=== PATIENT | male | born 1945 | race Caucasian/White ===

== ENCOUNTER 2023-04-23 16:40 | Observation (INO) | payer BC, MEDICARE ==
[2023-04-23 17:42] LABS: African American GFR (CKD) 62 (>60 ml/min/1.73 sqM); Anion Gap 5 mmol/L; Blood Urea Nitrogen 35 mg/dL (9-20); Calcium 8.4 mg/dL (8.4-10.2); Carbon Dioxide 25 mmol/L (22-30); Chloride 106 mmol/L (98-107); Glucose 131 mg/dL (74-99); Non-African American GFR(CKD) 54 (>60 ml/min/1.73 sqM); Sodium 136 mmol/L (137-145)
[2023-04-23 17:43] LABS: Basophils % (A) 0 %; Eosinophils # (A) 0.3 k/uL (0-0.7); Eosinophils % (A) 5 %; HCT 32.6 % (39.0-53.0); HGB 10.8 gm/dL (13.0-17.5); Lymphocytes % (A) 27 %; MCH 30.6 pg (25.0-35.0); MCHC 33.2 g/dL (31.0-37.0); MCV 92.1 fL (80.0-100.0); Mean Platelet Volume 7.7; Monocytes # (A) 0.6 k/uL (0-1.0); Monocytes % (A) 8 %; Neutrophils # (A) 4.2 k/uL (1.3-7.7); Neutrophils % (A) 58 %; Platelet Count 171 k/uL (150-450); RBC 3.54 m/uL (4.30-5.90); RDW 15.2 % (11.5-15.5); WBC 7.2 k/uL (3.8-10.6)
[2023-04-23] MEDS ORDERED: SODIUM CHLORIDE 0.9% 1,000 ML IV STA (17:54)
[2023-04-23] MEDS ORDERED: SODIUM CHLORIDE 0.9% 500 ML 500 ML IV STA (17:54)
[2023-04-23] MEDS ORDERED: MECLIZINE 12.5 MG TAB PO STA (17:57)
[2023-04-23] MEDS ORDERED: MECLIZINE 25 MG TAB PO PRN (17:57)
[2023-04-23] MEDS ORDERED: ACETAMINOPHEN TAB 325 MG TAB PO PRN (18:01)
[2023-04-23] MEDS ORDERED: NALOXONE 0.4 MG/ML 1 ML VIAL IV PRN (18:01)
[2023-04-23 18:08] LABS: Appearance,Urine Clear (Clear); Bilirubin,Urine Negative (Negative); Blood,Urine Negative (Negative); Glucose,Urine (UA) Negative (Negative); Hyaline Casts,Urine 1 /lpf (0-2); Ketones,Urine Negative (Negative); Leukocyte Esterase,Urine Large (Negative); Mucus,Urine Rare /hpf; Nitrite,Urine Negative (Negative); Protein,Urine Negative (Negative); RBC,Urine 1 /hpf (0-5); Specific Gravity,Urine 1.014 (1.001-1.035); Squamous Epithelial Cell,Urine <1 /hpf (0-4); Urobilinogen,Urine <2.0 mg/dL (<2.0); WBC,Urine 15 /hpf (0-5)
--- NOTE | 2023-04-23 18:08 | ED ---
General Adult HPI - General Chief complaint: Dizziness Stated complaint: Dizziness Time Seen by Provider: 04/23/23 17:04 Source: patient, EMS, RN notes reviewed, old records reviewed Mode of arrival: EMS Limitations: no limitations - History of Present Illness Initial comments: Patient is a 77 year old male with past medical history remarkable for vertigo, diabetes, hypertension, CAD with 3 cardiac stents who presents emergency Department complaining of persistent dizziness and a UTI. Patient is a transfer from [facility]. I spoke with Dr. Casas over the phone who gave me the patient's past medical history. Since Sunday patient has been having what they described as vertiginous type symptoms and was diagnosed with the UTI was being watched in the emergency department without much improvement. Therefore acute transfer for neuro evaluation. I spoke the patient regarding this and he did corroborate the story. However describes his dizziness as more of a lightheaded sensation now. Comes and goes. States meclizine somewhat helps currently asymptomatic upon presentation. Denies any other complaints at this time. He is found to have a flat troponin at the outside facility as well but we will repeat it here. He'll be admitted for neurology evaluation he was in agreement with this plan. Workup at the outside facility included CT brain and chest x-ray both of which were unremarkable for any acute process. - Related Data Home Medications Medication Instructions Recorded Confirmed Carvedilol [Coreg] 3.125 mg PO BID 03/27/16 04/23/23 Clopidogrel [Plavix] 75 mg PO DAILY 03/27/16 04/23/23 Furosemide [Lasix] 20 mg PO DAILY 03/27/16 04/23/23 Atorvastatin [Lipitor] 20 mg PO HS 04/23/23 04/23/23 DULoxetine HCL [Cymbalta] 60 mg PO BID 04/23/23 04/23/23 Finasteride [Proscar] 5 mg PO HS 04/23/23 04/23/23 Gabapentin 300 mg PO HS 04/23/23 04/23/23 Isosorbide Mononitrate ER [Imdur] 60 mg PO DAILY 04/23/23 04/23/23 Loratadine [Claritin] 10 mg PO DAILY 04/23/23 04/23/23 Melatonin 10 mg PO HS 04/23/23 04/23/23 Omeprazole [PriLOSEC] 20 mg PO DAILY 04/23/23 04/23/23 Tamsulosin HCl [Flomax] 0.4 mg PO DAILY 04/23/23 04/23/23 Vit C/E/Zn/Coppr/Lutein/Zeaxan 1 cap PO BID 04/23/23 04/23/23 [Preservision Areds 2 Softgel] traZODone HCL [Desyrel] 50 mg PO HS 04/23/23 04/23/23 Allergies Allergy/AdvReac Type Severity Reaction Status Date / Time cortisone Allergy Rash/Hives Verified 04/23/23 18:00 house dust mite Allergy Itching Verified 04/23/23 18:00 Review of Systems ROS Statement: Those systems with pertinent positive or pertinent negative responses have been documented in the HPI. Review of Systems: CONST: Denies fever EYES: Denies blurry vision ENT: Denies nasal congestion C/V: Denies Chest pain RESP: Denies shortness of breath GI: Denies abdominal pain : Denies dysuria SKIN: Denies rash. MSK: Denies joint pain. NEURO: Denies headache ROS Other: All systems not noted in ROS Statement are negative. Past Medical History Past Medical History: Diabetes Mellitus, Hypertension Additional Past Medical History / Comment(s): CAD, UTI History of Any Multi-Drug Resistant Organisms: None Reported Past Surgical History: Heart Catheterization With Stent Additional Past Surgical History / Comment(s): 3 stents Date of Last Stent Placement:: 08/2011 Past Psychological History: Depression Smoking Status: Former smoker Past Alcohol Use History: Occasional Past Drug Use History: None Reported - Past Family History Mother Family Medical History: Cancer Additional Family Medical History / Comment(s): Breast CA Father Family Medical History: Myocardial Infarction ([place]) General Exam - General Exam Comments Initial Comments: General: Appears in no acute distress. HEAD: Normal with no signs of head trauma. EYES: PERRLA, EOMI, conjunctiva normal, no discharge. Pupils are 3 mm equal bilaterally. ENT: Hearing grossly intact, normal oropharynx. RESPIRATORY: Clear breath sounds bilaterally. No wheezes, rales, or rhonchi. C/V: Regular rate and rhythm. S1 and S2 auscultated, no edema, peripheral pulses 2+ and intact throughout ABD: Abd is soft, nontender, nondistended EXT: Normal range of motion, no obvious deformity SKIN: No rashes or lesions observed on exposed skin. NEURO: Alert and oriented x 4. Cranial nerves II-XII intact. No focal sensory or strength deficits. GCS of 15. NIH of 0. Normal finger to nose testing. Normal [id number] testing. No dysdiadochokinesia. Limitations: no limitations Course Vital Signs 04/23/23 04/23/23 16:49 17:48 Temperature 98.3 F Pulse Rate 52 L Pulse Rate [ 66 Sitting] Pulse Rate [ 80 Standing] Pulse Rate [ 56 L Supine Missile Control Pilot] Respiratory 18 Rate Blood Pressure 102/50 Blood Pressure 86/52 [Right Arm Sitting] Blood Pressure 99/60 [Right Arm Standing] Blood Pressure 95/59 [Right Arm Supine] O2 Sat by Pulse 97 Oximetry Medical Decision Making - Medical Decision Making Was pt. sent in by a medical professional or institution (, PA, CHEMICAL CHECKER, urgent care, hospital, or [place] health [place] facility...) When possible be specific @ -No Did you speak to anyone other than the patient for history (EMS, parent, family, police, friend...)? What history was obtained from this source @ -Spoke with Dr. Casas of [facility] who provided me with information regarding the patient's stay at their facility. Did you review nursing and triage notes (agree or disagree)? Why? @ -I reviewed and agree with nursing and triage notes Were old charts reviewed (outside hosp., previous admission, EMS record, old EKG, old radiological studies, urgent care reports/EKG's, [place] [facility] [place] facility records)? Report findings @ -Reviewed charts from [facility] including EKG Differential Diagnosis (chest pain, altered mental status, abdominal pain women, abdominal pain men, vaginal bleeding, weakness, fever, dyspnea, syncope, headache, dizziness, GI bleed, back pain, seizure, CVA, palpatations, mental health, musculoskeletal)? @ -Differential Dizziness: Benign paroxysmal positional Vertigo, Menieres disease, otitis media, acoustic neuroma, vertebrobasilar insufficiency, cerebellar stroke, encephalitis, hypovolemic, arrhythmia, coronary artery syndrome, anemia, this is not meant to be an all-inclusive list EKG interpreted by me (3pts min.). @ -As above X-rays interpreted by me (1pt min.). @ -None done CT interpreted by me (1pt min.). @ -None done U/S interpreted by me (1pt. min.). @ -None done What testing was considered but not performed or refused? (CT, X-rays, U/S, labs)? Why? @ -None What meds were considered but not given or refused? Why? @ -None Did you discuss the management of the patient with other professionals (professionals i.e. DrYeimy, PA, CHEMICAL CHECKER, lab, RT, psych nurse, social media specialist, quality internship, teacher, senior major gifts officer, continuous pillowcase cutter)? Give summary @ -Discussed with the transferring physician, Dr. Casas. I was in agreement with her plan. I also discussed with the admitting physician, Dr. Hdez who accepted the patient. Was smoking cessation discussed for >3mins.? @ -No Was critical care preformed (if so, how long)? @ -No Were there social determinants of health that impacted care today? How? (Homelessness, low income, unemployed, alcoholism, drug addiction, transportation, low edu. Level, literacy, decrease access to med. care, penitentiary, rehab)? @ -No Was there de-escalation of care discussed even if they declined (Discuss DNR or withdrawal of care, Hospice)? DNR status @ -No What co-morbidities impacted this encounter? (DM, HTN, Smoking, COPD, CAD, Cancer, CVA, ARF, Chemo, Hep., AIDS, mental health diagnosis, sleep apnea, morbid obesity)? @ -None Was patient admitted / discharged? Hospital course, mention meds given and route, prescriptions, significant lab abnormalities, going to OR and other pertinent info. @ -Based on the patient's presentation and physical exam, presents with persistent dizziness/vertiginous symptoms since Sunday that appeared to have since been resolved. He was diagnosed with a UTI at outside hospital. Blood work was reviewed from outside hospital we will repeat labs here. He was in agreement with this plan. Orthostatic vital signs negative here. He will be given a fluid bolus, started on maintenance fluids, we will resume his Rocephin for his UTI, and we will provide him with a dose of meclizine. Patient was in agreement with this plan. Vital signs are otherwise within acceptable limits. EKG shows no signs of acute ischemia. Patient's labs repeated here are relatively unremarkable including a troponin that is indeterminate at 0.012. Urinalysis continues to show WBCs, as well as a large amount of leukocyte esterase. At the outside facility, they also saw large amount of bacteria. Viral swabs are negative. At this time patient will be admitted. Outside imaging was uploaded and reviewed and revealed no obvious acute intracranial process and no obvious acute cardiopulmonary process. His patient was transferred here for neurology evaluation despite him being asymptomatic at this time, we will obtain a neuro consult. He will be admitted to [facility], Dr. Hdez, who accepted the patient. Undiagnosed new problem with uncertain prognosis? @ -No Drug Therapy requiring intensive monitoring for toxicity (Heparin, Nitro, Insulin, Cardizem)? @ -No Were any procedures done? @ -No Diagnosis/symptom? @ -Dizziness, UTI Acute, or Chronic, or Acute on Chronic? @ -Acute Uncomplicated (without systemic symptoms) or Complicated (systemic symptoms)? @ -Complicated Side effects of treatment? @ -No Exacerbation, Progression, or Severe Exacerbation? @ -No Poses a threat to life or bodily function? How? (Chest pain, [place], AR, pneumonia, PE, COPD, DKA, ARF, appy, cholecystitis, CVA, Diverticulitis, Homicidal, Marci cidal, threat to staff... and all critical care pts) @ -Yes - Lab Data Result diagrams: 04/23/23 17:20 04/23/23 17:20 Lab Results 04/23/23 04/23/23 04/23/23 Range/Units 17:20 17:20 17:20 WBC 7.2 (3.8-10.6) k/uL RBC 3.54 L (4.30-5.90) m/uL Hgb 10.8 L (13.0-17.5) gm/dL Hct 32.6 L (39.0-53.0) % MCV 92.1 (80.0-100.0) fL MCH 30.6 (25.0-35.0) pg MCHC 33.2 (31.0-37.0) g/dL RDW 15.2 (11.5-15.5) % Plt Count 171 (150-450) k/uL MPV 7.7 Neutrophils % 58 % Lymphocytes % 27 % Monocytes % 8 % Eosinophils % 5 % Basophils % 0 % Neutrophils # 4.2 (1.3-7.7) k/uL Lymphocytes # 2.0 (1.0-4.8) k/uL Monocytes # 0.6 (0-1.0) k/uL Eosinophils # 0.3 (0-0.7) k/uL Basophils # 0.0 (0-0.2) k/uL Sodium 136 L (137-145) mmol/L Potassium 4.0 (3.5-5.1) mmol/L Chloride 106 (98-107) mmol/L Carbon Dioxide 25 (22-30) mmol/L Anion Gap 5 mmol/L BUN 35 H (9-20) mg/dL Creatinine 1.29 H (0.66-1.25) mg/dL Est GFR (CKD-EPI)AfAm 62 (>60 ml/min/1.73 sqM) Est GFR (CKD-EPI)NonAf 54 (>60 ml/min/1.73 sqM) Glucose 131 H (74-99) mg/dL Plasma Lactic Acid Bebeto 1.3 (0.7-2.0) mmol/L Calcium 8.4 (8.4-10.2) mg/dL Troponin I (0.000-0.034) ng/mL Urine Color Urine Appearance (Clear) Urine pH (5.0-8.0) Ur Specific [place] (1.001-1.035) Urine Protein (Negative) Urine Glucose (UA) (Negative) Urine Ketones (Negative) Urine Blood (Negative) Urine Nitrite (Negative) Urine Bilirubin (Negative) Urine Urobilinogen (<2.0) mg/dL Ur Leukocyte Esterase (Negative) Urine RBC (0-5) /hpf Urine WBC (0-5) /hpf Ur Squamous Epith Cells (0-4) /hpf Hyaline Casts (0-2) /lpf Urine Mucus (None) /hpf Influenza Type A (PCR) (Not Detectd) Influenza Type B (PCR) (Not Detectd) RSV (PCR) (Not Detectd) SARS-CoV-2 (PCR) (Not Detectd) 04/23/23 04/23/23 04/23/23 Range/Units 17:20 17:20 17:48 WBC (3.8-10.6) k/uL RBC (4.30-5.90) m/uL Hgb (13.0-17.5) gm/dL Hct (39.0-53.0) % MCV (80.0-100.0) fL MCH (25.0-35.0) pg MCHC (31.0-37.0) g/dL RDW (11.5-15.5) % Plt Count (150-450) k/uL MPV Neutrophils % % Lymphocytes % % Monocytes % % Eosinophils % % Basophils % % Neutrophils # (1.3-7.7) k/uL Lymphocytes # (1.0-4.8) k/uL Monocytes # (0-1.0) k/uL Eosinophils # (0-0.7) k/uL Basophils # (0-0.2) k/uL Sodium (137-145) mmol/L Potassium (3.5-5.1) mmol/L Chloride (98-107) mmol/L Carbon Dioxide (22-30) mmol/L Anion Gap mmol/L BUN (9-20) mg/dL Creatinine (0.66-1.25) mg/dL Est GFR (CKD-EPI)AfAm (>60 ml/min/1.73 sqM) Est GFR (CKD-EPI)NonAf (>60 ml/min/1.73 sqM) Glucose (74-99) mg/dL Plasma Lactic Acid [place] (0.7-2.0) mmol/L Calcium (8.4-10.2) mg/dL Troponin I 0.012 (0.000-0.034) ng/mL Urine Color Yellow Urine Appearance Clear (Clear) Urine pH 5.0 (5.0-8.0) Ur Specific [place] 1.014 (1.001-1.035) Urine Protein Negative (Negative) Urine Glucose (UA) Negative (Negative) Urine Ketones Negative (Negative) Urine Blood Negative (Negative) Urine Nitrite Negative (Negative) Urine Bilirubin Negative (Negative) Urine Urobilinogen <2.0 (<2.0) mg/dL Ur Leukocyte Esterase Large H (Negative) Urine RBC 1 (0-5) /hpf Urine WBC 15 H (0-5) /hpf Ur Squamous Epith Cells <1 (0-4) /hpf Hyaline Casts 1 (0-2) /lpf Urine Mucus Rare H (None) /hpf Influenza Type A (PCR) Not Detected (Not Detectd) Influenza Type B (PCR) Not Detected (Not Detectd) RSV (PCR) Not Detected (Not Detectd) SARS-CoV-2 (PCR) Not Detected (Not Detectd) - EKG Data -: EKG Interpreted by Me EKG Comments: \12-lead Electrocardiogram Interpretation Note EKG was reviewed and interpreted by myself. 12-lead ECG performed at 1735 is interpreted by me as revealing sinus bradycardia with first-degree AV block at a rate of 55 beats per minute. [place] is normal. OR interval is 225 ms, QRS duration is 81 ms, QTc is 418 ms.. There were no ST or T wave abnormalities to suggest myocardial ischemia or injury. R wave progression across the precordium was satisfactory. By my interpretation this EKG is non-diagnostic for acute ischemia. When compared with EKG from outside facility performed last night, no significant change. Disposition Clinical Impression: Dizzy, UTI (urinary tract infection) Disposition: ADMITTED IP TO THIS HOSP Condition: Stable [facility]: [facility] [Primary Care Provider] - 1-2 days Time of Disposition: 18:05
[2023-04-23 18:09] LABS: Color,Urine Yellow
--- NOTE | 2023-04-23 23:51 | P.HPIM ---
History of Present Illness H&P Date: 04/23/23 The patient is a 77-year-old male with a PMH of type II DM, chronic kidney disease, CAD status post stents, hypertension, and hyperlipidemia who was transferred from [facility] where the patient had presented on 04/22 with complaints of dizziness with nausea and vomiting. The patient reports that he woke up on Sunday morning with the above symptoms. He reports long- standing history of intermittent dizziness with nausea that would normally resolv within 24 hours. This episode was persistent and thereby on Sunday he decided to go to the emergency room. He reports vertiginous symptoms with bilateral ear fullness and some tinnitus. The symptoms are worse with movement although he continues to have mild symptoms at rest and are not necessarily positional but more so with standing up. Reports that his symptoms have improved significantly since arrival at [facility] but he continues to have mild vertiginous dizziness. He denied experiencing focal weakness, numbness, tingling, or visual disturbances. The patient underwent an extensive evaluation at [facility] which was all reviewed. EKG had revealed sinus rhythm at 60 bpm with a right bundle-branch block as reviewed by me. Laboratory evaluation revealed a UA consistent with UTI. The patient was sta rted on ceftriaxone and also given meclizine for suspected peripheral vertigo. CT brain was unremarkable. A CT chest/abdomen/pelvis without contrast was also unremarkable. Laboratory evaluation had revealed a troponin of 0.030, followed by 0.037 and subsequently 0.045 with BUN 32, creatinine 1.1, lactate 2.0, magnesium 2.1, The patient's symptoms however failed to improve despite treatment with fluids and meclizine and he was transferred to [facility] for evaluation by neurology for possible posterior circulation CVA. Vital signs in the emergency room upon arrival were BP 102/50 with pulse 52. Orthostatics were checked and were negative with BP sitting 86/52 with pulse 56. Laboratory evaluation at our facility revealed a troponin of 0.012 with BUN 35 and creatinine 1.29. EKG had revealed sinus bradycardia at 55 bpm with a right bundle-branch block as reviewed by me. ED documentation reviewed and case discussed with ED provider. Review of systems: Pertinent positives and negatives as discussed in HPI, a complete review of systems was performed and all other systems are negative. Physical examination: Vital signs reviewed General: non toxic, no distress, appears at stated age, normal weight Derm: no unusual rashes/lesions, warm Head: atraumatic, normocephalic, symmetric Eyes: EOMI, no lid lag, anicteric sclera, pupils equal round reactive to light ENT: Nose and ears atraumatic Neck: No cervical lymphadenopathy, trachea midline, supple Mouth: no lip lesion, mucus membranes moist Cardiovascular: S1S2 reg, no murmur, positive dorsalis pedis pulse bilateral, no edema Lungs: CTA bilateral, no rhonchi, no rales, no accessory muscle use Abdominal: soft, nontender to palpation, no guarding Ext: muscle strength 3 out of 5 right lower extremity (chronic after a fall several years ago as per patient), strength 5 out of 5 in all other extremities, no gross muscle atrophy, no contractures Neuro: CN II-XI grossly intact, no gross focal neuro deficits Psych: Alert, oriented, appropriate affect Assessment: Vertigo with ear fullness and tinnitus, suspect peripheral Hypotension UTI Chronic conditions: Type 2 DM, CKD, CAD, HTN, HLD Imaging: As per HPI Data Review: As per HPI Plan: C/w Meclizine Neurology consult Fall precautions Obtain CTA head and neck C/w IV fluids with normal saline 100 and also per hour Continue ceftriaxone and follow up urine cultures DVT prophylaxis: Lovenox subq The patient is admitted with an anticipated greater than 2 midnight stay for evaluation of dizziness CODE STATUS: Full Code Discussed with: Patient Anticipated discharge place: Home Past Medical History Past Medical History: Diabetes Mellitus, Hypertension Additional Past Medical History / Comment(s): CAD, UTI History of Any Multi-Drug Resistant Organisms: None Reported Past Surgical History: Heart Catheterization With Stent Additional Past Surgical History / Comment(s): 3 stents Date of Last Stent Placement:: 08/2011 Past Psychological History: Depression Smoking Status: Former smoker Past Alcohol Use History: Occasional Past Drug Use History: None Reported - Past Family History Mother Family Medical History: Cancer Additional Family Medical History / Comment(s): Breast CA Father Family Medical History: Myocardial Infarction ([place]) Medications and Allergies Home Medications Medication Instructions Recorded Confirmed Type Carvedilol [Coreg] 3.125 mg PO BID 03/27/16 04/23/23 History Clopidogrel [Plavix] 75 mg PO DAILY 03/27/16 04/23/23 History Furosemide [Lasix] 20 mg PO DAILY 03/27/16 04/23/23 History Atorvastatin [Lipitor] 20 mg PO HS 04/23/23 04/23/23 History DULoxetine HCL [Cymbalta] 60 mg PO BID 04/23/23 04/23/23 History Finasteride [Proscar] 5 mg PO HS 04/23/23 04/23/23 History Gabapentin 300 mg PO HS 04/23/23 04/23/23 History Isosorbide Mononitrate ER [Imdur] 60 mg PO DAILY 04/23/23 04/23/23 History Loratadine [Claritin] 10 mg PO DAILY 04/23/23 04/23/23 History Melatonin 10 mg PO HS 04/23/23 04/23/23 History Omeprazole [PriLOSEC] 20 mg PO DAILY 04/23/23 04/23/23 History Tamsulosin HCl [Flomax] 0.4 mg PO DAILY 04/23/23 04/23/23 History Vit C/E/Zn/Coppr/Lutein/Zeaxan 1 cap PO BID 04/23/23 04/23/23 History [Preservision Areds 2 Softgel] traZODone HCL [Desyrel] 50 mg PO HS 04/23/23 04/23/23 History Allergies Allergy/AdvReac Type Severity Reaction Status Date / Time cortisone Allergy Rash/Hives Verified 04/23/23 18:00 house dust mite Allergy Itching Verified 04/23/23 18:00 Physical Exam Vitals: Vital Signs Temp Pulse Pulse Pulse Pulse Resp BP 04/23/23 17:48 66 80 56 L 04/23/23 16:49 98.3 F 52 L 18 102/50 BP BP BP Pulse Ox 04/23/23 17:48 86/52 99/60 95/59 04/23/23 16:49 97 Intake and Output 04/23/23 04/23/23 04/23/23 06:59 14:59 22:59 Other: Weight 73.482 kg Results CBC & Chem 7: 04/23/23 17:20 04/23/23 17:20 Labs: Abnormal Lab Results - Last 24 Hours (Table) 04/23/23 04/23/23 04/23/23 Range/Units 17:20 17:20 17:48 RBC 3.54 L (4.30-5.90) m/uL Hgb 10.8 L (13.0-17.5) gm/dL Hct 32.6 L (39.0-53.0) % Sodium 136 L (137-145) mmol/L BUN 35 H (9-20) mg/dL Creatinine 1.29 H (0.66-1.25) mg/dL Glucose 131 H (74-99) mg/dL Ur Leukocyte Esterase Large H (Negative) Urine WBC 15 H (0-5) /hpf Urine Mucus Rare H (None) /hpf
--- NOTE | 2023-04-24 02:00 | CT ---
EXAM: CT Angiography Head With Intravenous Contrast CLINICAL HISTORY: ITS.REASON CT Reason: dizziness TECHNIQUE: Axial computed tomographic angiography images of the head with intravenous contrast. CTDI is 19.5 mGy and DLP is 247.2 mGy-cm. This CT exam was performed using one or more of the following dose reduction techniques: automated exposure control, adjustment of the mA and/or kV according to patient size, and/or use of iterative reconstruction technique. MIP reconstructed images were created and reviewed. COMPARISON: No relevant prior studies available. FINDINGS: Right internal carotid artery: Intracranial segment is patent with no significant stenosis. No aneurysm. Right anterior cerebral artery: No occlusion or significant stenosis. No aneurysm. Right middle cerebral artery: Mild right proximal M2 branch stenosis. No aneurysm. Right posterior cerebral artery: No occlusion or significant stenosis. No aneurysm. Left internal carotid artery: Intracranial segment is patent with no significant stenosis. No aneurysm. Left anterior cerebral artery: No occlusion or significant stenosis. No aneurysm. Left middle cerebral artery: No occlusion or significant stenosis. No aneurysm. Left posterior cerebral artery: No occlusion or significant stenosis. No aneurysm. Basilar artery: No occlusion or significant stenosis. No aneurysm. IMPRESSION: Mild right proximal M2 branch stenosis. EXAM: CT Angiography Neck With Intravenous Contrast CLINICAL HISTORY: ITS.REASON CT Reason: dizziness TECHNIQUE: Axial computed tomographic angiography images of the neck with intravenous contrast. CTDI is 19.5 mGy and DLP is 247.2 mGy-cm. This CT exam was performed using one or more of the following dose reduction techniques: automated exposure control, adjustment of the mA and/or kV according to patient size, and/or use of iterative reconstruction technique. MIP reconstructed images were created and reviewed. COMPARISON: No relevant prior studies available. FINDINGS: VASCULATURE: Right common carotid artery: No significant stenosis. No dissection. Right internal carotid artery: Extracranial has no significant stenosis. No dissection. Right vertebral artery: No significant stenosis. No dissection. Left common carotid artery: No significant stenosis. No dissection. Left internal carotid artery: Extracranial has no significant stenosis. No dissection. Left vertebral artery: Mild left intervertebral vertebral artery stenosis from atherosclerosis. No dissection. NECK: Bones/joints: No acute fracture. No dislocation. CAROTID STENOSIS REFERENCE USING NASCET CRITERIA: % ICA stenosis = (1 - narrowest ICA diameter/diameter of distal cervical ICA) x 100. Mild - <50% stenosis. Moderate - 50-69% stenosis. Severe - 70-94% stenosis. Near occlusion - 95-99% stenosis. Occluded - 100% stenosis. IMPRESSION: Mild left intervertebral vertebral artery stenosis from atherosclerosis.
[2023-04-24] MEDS: ENOXAPARIN 40 MG/0.4 ML SYRINGE SQ SCH (09:21)
[2023-04-24 12:02] LABS: Basophils # (A) 0.04 X 10*3/uL (0.00-0.10); Basophils % (A) 0.6 %; Eosinophils # (A) 0.34 X 10*3/uL (0.04-0.35); Eosinophils % (A) 5.2 %; HGB 10.2 d/dL (13.0-17.0); Lymphocytes # (A) 2.42 X 10*3/uL (0.90-5.00); Lymphocytes % (A) 37.1 %; MCH 30.1 pg (27.0-32.0); MCHC 31.9 d/dL (32.0-37.0); MCV 94.4 FL (80.0-97.0); Mean Platelet Volume 9.6 FL (9.5-12.2); Monocytes # (A) 0.55 X 10*3/uL (0.20-1.00); Monocytes % (A) 8.4 %; NRBC Per 100 WBC 0 X 10*3/uL (0.00-0.01); Neutrophils # (A) 3.16 X 10*3/uL (1.80-7.70); Neutrophils % (A) 48.4 %; Platelet Count 160 X 10*3/uL (140-440); RBC 3.39 X 10*6/uL (4.40-5.60); RDW 15.6 % (11.5-14.5); WBC 6.53 X 10*3/uL (4.50-10.00)
[2023-04-24 12:09] LABS: BUN/Creat Ratio 24.27 Ratio (12.00-20.00); Blood Urea Nitrogen 26.7 mg/dL (9.0-27.0); Calcium 8.6 mg/dL (8.7-10.3); Carbon Dioxide 23.8 mmol/L (21.6-31.8); Chloride 110 mmol/L (96-109); Glucose 89 mg/dL (70-110); Potassium 4.1 mmol/L (3.5-5.5); Sodium 142 mmol/L (135-145)
--- NOTE | 2023-04-24 13:56 | P.CNNES ---
History of Present Illness Consult date: 04/24/23 Requesting physician: Yash Rizo Reason for Consult: persistent dizziness, hx of vertigo History of Present Illness: This is a 77-year-old gentleman with history of vertigo, diabetes, coronary artery disease status post stent to presented emergency department because of dizziness and UTI. He was transferred from [facility] visit this dizziness and the neuro evaluation. She states she's been having li ghtheadedness and he feels its with resting and the with movement but denies any focal weakness numbness difficulty swallowing visual disturbance. He has chronic ringing in both ears. Denies any head trauma recently. Denies any new hearing loss. Seems the patient has been having dizziness and there is no improvement while being watched at the outside hospital. He had the CT of the head at the outside hospital which was unremarkable and there is no acute process. Today patient is feeling better after Meclizine dose. He walks with walker at baseline. Some of the workup during our hospital visit consisted of: Patient orthostatic is supine 95/59 the heart rate 56, sitting is 86/52 with a heart rate is 66 and standing was 99/60 with a heart rate of 80. Orthostatics is negative. CT angiography of the head and neck is reported as mild left intervertebral artery stenosis from atherosclerosis. Mild right proximal M2 branch stenosis. Review of Systems Review of system: The 12 point system was reviewed and apparent positive and negative per HPI. Past Medical History Past Medical History: Diabetes Mellitus, Hypertension Additional Past Medical History / Comment(s): CAD, UTI History of Any Multi-Drug Resistant Organisms: None Reported Past Surgical History: Heart Catheterization With Stent Additional Past Surgical History / Comment(s): 3 stents Date of Last Stent Placement:: 08/2011 Past Psychological History: Depression Smoking Status: Former smoker Past Alcohol Use History: Occasional Past Drug Use History: None Reported - Past Family History Mother Family Medical History: Cancer Additional Family Medical History / Comment(s): Breast CA Father Family Medical History: Myocardial Infarction ([place]) Medications and Allergies Home Medications Medication Instructions Recorded Confirmed Type Carvedilol [Coreg] 3.125 mg PO BID 03/27/16 04/23/23 History Clopidogrel [Plavix] 75 mg PO DAILY 03/27/16 04/23/23 History Furosemide [Lasix] 20 mg PO DAILY 03/27/16 04/23/23 History Atorvastatin [Lipitor] 20 mg PO HS 04/23/23 04/23/23 History DULoxetine HCL [Cymbalta] 60 mg PO BID 04/23/23 04/23/23 History Finasteride [Proscar] 5 mg PO HS 04/23/23 04/23/23 History Gabapentin 300 mg PO HS 04/23/23 04/23/23 History Isosorbide Mononitrate ER [Imdur] 60 mg PO DAILY 04/23/23 04/23/23 History Loratadine [Claritin] 10 mg PO DAILY 04/23/23 04/23/23 History Melatonin 10 mg PO HS 04/23/23 04/23/23 History Omeprazole [PriLOSEC] 20 mg PO DAILY 04/23/23 04/23/23 History Tamsulosin HCl [Flomax] 0.4 mg PO DAILY 04/23/23 04/23/23 History Vit C/E/Zn/Coppr/Lutein/Zeaxan 1 cap PO BID 04/23/23 04/23/23 History [Preservision Areds 2 Softgel] traZODone HCL [Desyrel] 50 mg PO HS 04/23/23 04/23/23 History Allergies Allergy/AdvReac Type Severity Reaction Status Date / Time cortisone Allergy Rash/Hives Verified 04/23/23 18:00 house dust mite Allergy Itching Verified 04/23/23 18:00 Physical Examination - Vital Signs Vital Signs: Vital Signs Temp Pulse Pulse Pulse Pulse Resp BP 04/24/23 11:07 97.6 F 56 L 18 114/57 04/24/23 10:00 65 16 135/68 04/24/23 09:00 61 16 136/78 04/24/23 04:10 16 04/24/23 00:23 66 18 112/63 04/23/23 23:42 97.9 F 50 L 17 04/23/23 17:48 66 80 56 L 04/23/23 16:49 98.3 F 52 L 18 102/50 BP BP BP Pulse Ox 04/24/23 11:07 94 L 04/24/23 10:00 98 04/24/23 09:00 98 04/24/23 04:10 04/24/23 00:23 94 L 04/23/23 23:42 130/67 97 04/23/23 17:48 86/52 99/60 95/59 04/23/23 16:49 97 Intake and Output 04/23/23 04/24/23 04/24/23 22:59 06:59 14:59 Other: Weight 73.482 kg 73.482 kg GENERAL: The patient is lying in bed and is not in acute distress. NEUROLOGICAL: Higher mental function: The patient is awake, alert, oriented to self, place and time. Patient is following commands. No aphasia and no neglect. Cranial nerves: The pupils are round, equal and reactive to light and accommodation. Visual johnson are full to confrontation throughout. Extraocular movement is intact no nystagmus is noted. Facial sensation is normal to touch throughout. The facial strength is normal throughout. Hearing is moderately decreased bilaterally to hand rub. Tongue is midline and moved [id number] without any difficulty. No dysarthria is noted. Shoulder shrug is normal bilaterally. Motor: The strength is 5 over 5 throughout. Normal tone and bulk. Cerebellum: Normal finger to nose bilaterally. Sensation: Sensation is normal to touch throughout. Reflexes (right/left): 1+ throughout. Plantars are mute bilaterally. Results - Laboratory Findings CBC and BMP: 04/24/23 06:37 04/24/23 06:37 Abnormal Lab Findings: Abnormal Labs 04/23/23 04/23/23 04/23/23 17:20 17:20 17:48 RBC 3.54 L Hgb 10.8 L Hct 32.6 L MCHC RDW Sodium 136 L Chloride BUN 35 H Creatinine 1.29 H BUN/Creatinine Ratio Glucose 131 H Calcium Ur Leukocyte Esterase Large H Urine WBC 15 H Urine Mucus Rare H 04/24/23 04/24/23 06:37 06:37 RBC 3.39 L Hgb 10.2 L Hct 32.0 L MCHC 31.9 L RDW 15.6 H Sodium Chloride 110 H BUN Creatinine BUN/Creatinine Ratio 24.27 H Glucose Calcium 8.6 L Ur Leukocyte Esterase Urine WBC Urine Mucus Assessment and Plan Assessment: This is a 77-year-old gentleman who was transferred from outside hospital for escalation of care of his dizziness and then needing neurology validation. Patient also has an acute urinary tract infection. Lightheadedness and feeling nauseous Probable peripheral cause especially with acute UTI--improved with meclizine Mild left intervertebral artery stenosis from atherosclerosis andM ild right proximal M2 branch stenosis on CTA but not significant enough in to cause vertigo. Acute urinary tract infection Plan: I ordered MRI of the brain with and without to rule out any peripheral stroke. He is on meclizine 25 g one tablet 3 times a day when necessary. I change it to the scheduled MR the brain is negative for any acute or subacute stroke or any mass continues to have dizziness then the recommend ENT and consideration of vestibular rehab therapy as an outpatient. We'll defer the rest of the medical management to the primary team Thank you for the consultation. Time with Patient: Greater than 30
[2023-04-24] MEDS: MECLIZINE 25 MG TAB PO SCH ×2 (16:02→21:25)
--- NOTE | 2023-04-24 17:56 | P.PN ---
Subjective Progress Note Date: 04/24/23 Hospital course: Patient is a very pleasant 77-year-old male with a past medical history of CAD status post stents on Plavix, hypertension, hyperlipidemia, BPH, vertigo with chronic tinnitus, and depression. He was transferred to our facility on 04/23/23 from [facility] secondary to intractable dizziness, nausea, and vomiting. Patient reports upon awakening Sunday morning the symptoms were present and have been persistent. Patient reports feeling this way in the past with episodes of vertigo but reports never this severe and only lasting a short while prior to resolving after taking meclizine. Patient also reports in the past if he lied down symptoms would resolve and only worsened if he moved. Patient states now it does not matter if he is lying still or moving dizziness and nausea is persistent. He does report increase in these symptoms with standing but states they do not resolve when lying down. He denies experiencing any headache, changes in vision or hearing, chest pain or palpitations, shortness of breath, cough or congestion, abdominal pain,. Or experiencing any numbness/tingling/weakness/swelling in his extremities. On arrival to our facility patient underwent full evaluation. Vital signs completed with blood pressure 102/50, heart rate 52, respiratory rate 18, temp 98.3F, and SpO2 of 97% on room air. Orthostatic vitals were completed and negative for orthostatic hypotension with blood pressure 95/59 lying, 86/52 sitting, and 99/60 standing. EKG was completed showing sinus bradycardia at 55 bpm with a first-degree AV block with WI interval of 225 ms and no significant T-wave or ST abnormalities showing no signs of acute ischemia upon personal review and interpretation. CTA head was completed showing mild right proximal M2 branch stenosis and mild left intervertebral vertebral artery stenosis from atherosclerosis.. CBC showing normocytic anemia with hemoglobin of 10.8. BMP showing slight elevation of renal function with BUN of 35, creatinine 1.29 and GFR 54. Glucose was 131. Lactic acid was 1.3. Troponin was 0.012. Urinalysis was negative for blood or infection. Influenza A, influenza B, RSV, and Covid PCR were all negative. Patient was admitted under the services of consultation to neurology. Physical exam: Patient seen and fully evaluated at bedside this morning. Patient reports persistent dizziness and nausea and denies any further episodes of vomiting. He continues to deny having any changes in vision, difficulties with speech, dysphasia, chest pain, palpitations, or experiencing any numbness /tingling/weakness in his extremities. Patient reports dizziness is improved but not resolved with lying still but does worsen upon standing or with movement. Vital signs reviewed and stable. General: Nontoxic, no distress and appears stated age. Derm: Skin warm and dry, normal coloration for ethnicity. Head: Atraumatic, normocephalic and symmetric. Eyes: EOMs intact, no lid lag, and anicteric sclera Mouth: no lip lesions, mucus membranes moist Cardiovascular: regular rate and rhythm with normal S1S2, no murmur, positive posterior tibial pulses bilaterally, and cap refill < 2 seconds. Lungs: Respirations even, regular, and unlabored on room air. Lungs CTA bilaterally, no rhonchi, no rales, no wheezing, and no accessory muscle usage. Abdominal: soft, nontender to palpation, no guarding, no appreciable organomegaly Ext: ROM intact. No gross muscle atrophy, no edema, no contractures Neuro: Speech clear, face symmetrical and CN II-XII grossly intact with no noted focal neuro deficits Psych: Alert and oriented to person, place, time, and situation. Appropriate and pleasant affect. Assessment and Plan of Care: Intractable dizziness with nausea and vomiting Vertigo with chronic tinnitus Prerenal azotemia History of CAD status post stenting on Plavix Hypertension Hyperlipidemia -Orthostatic vitals reviewed and negative for orthostatic hypotension. -CTA head completed in radiology report reviewed stating mild right proximal M2 branch stenosis and mild left intervertebral vertebral artery stenosis from atherosclerosis. -Neurology following and discussed plan of care discussed with neurologist. He is recommending an MRI of the brain to rule out peripheral stroke. -Patient to continue with Plavix 75 mg daily along with atorvastatin 20 mg nightly and will add on aspirin 81 mg daily. -Continue with fall precautions in order placed for neuro checks every shift. -Lasix was held and Patient received IV fluid hydration with a 500 mL bolus of 0.9% normal saline followed by infusion at 100 mL per hour 10 hours per treatment of prerenal azotemia. -Continue telemetry monitoring -Fall precautions -Consult placed to physical and occupational therapy for evaluation. Data reviewed: Vital signs reviewed and stable. Blood pressure 136/78, heart rate 61, respiratory rate 16, temp 97.6F, SpO2 of 98% on room air. Morning labs reviewed. CBC showing stable normocytic anemia with hemoglobin of 10.2. BMP revealing mild hyperchloremia with chloride of 110 and sodium of 142 status post completion of IV fluid hydration. Renal function improving with BUN of 26.7, creatinine 1.1, and GFR of 70. Imaging reviewed: -CTA head completed in radiology report reviewed stating mild right proximal M2 branch stenosis and mild left intervertebral vertebral artery stenosis from atherosclerosis. CODE STATUS: Full code DVT prophylaxis: Lovenox Discussed with: Patient, RN, and neurologist Anticipated discharge date: Clinical course to determine Anticipated discharge place: Home Patient was seen independently by Nurse Pracitioner. This document was prepared using [employer] dictation software. Please allow for errors in boiler shop mechanic, while rare they do occur. I reviewed the documentation as provided by the SILVANA above, who is the original author of this note. I agree with the documented assessment and plan, with the following changes: none Objective - Vital Signs Vital signs: Vital Signs Temp 98.3 F 04/23/23 16:49 Pulse 66 04/24/23 00:23 Resp 16 04/24/23 04:10 BP 112/63 04/24/23 00:23 Pulse Ox 94 L 04/24/23 00:23 FiO2 Intake & Output 04/23/23 04/24/23 04/24/23 18:59 06:59 18:59 Weight 73.482 kg - Labs CBC & Chem 7: 04/24/23 06:37 04/24/23 06:37 Labs: Abnormal Lab Results - Last 24 Hours (Table) 04/23/23 04/23/23 04/23/23 Range/Units 17:20 17:20 17:48 RBC 3.54 L (4.30-5.90) m/uL Hgb 10.8 L (13.0-17.5) gm/dL Hct 32.6 L (39.0-53.0) % Sodium 136 L (137-145) mmol/L BUN 35 H (9-20) mg/dL Creatinine 1.29 H (0.66-1.25) mg/dL Glucose 131 H (74-99) mg/dL Ur Leukocyte Esterase Large H (Negative) Urine WBC 15 H (0-5) /hpf Urine Mucus Rare H (None) /hpf
[2023-04-24] MEDS: ASPIRIN 81 MG PO SCH (18:39)
[2023-04-24] MEDS: carvediloL 3.125 MG TAB PO SCH (18:39)
[2023-04-24] MEDS: CLOPIDOGREL 75 MG TAB PO SCH (18:40)
[2023-04-24] MEDS: traZODone HCL 50 MG TAB PO SCH (20:46)
[2023-04-24] MEDS: MELATONIN 5 MG TABLET PO SCH (20:46)
[2023-04-24] MEDS: DULoxetine HCL 60 MG CAPSULE.DR PO SCH (20:46)
[2023-04-24] MEDS: ATORVASTATIN 20 MG TAB PO SCH (20:46)
[2023-04-24] MEDS: FINASTERIDE 5 MG TAB PO SCH (20:46)
[2023-04-24] MEDS: GABAPENTIN 300 MG CAP PO SCH (20:47)
--- NOTE | 2023-04-24 21:00 | MR ---
EXAMINATION TYPE: MR brain wo/w con DATE OF EXAM: 04/24/2023 8:18 PM CLINICAL INDICATION:Male, 77 years old with history of vertigo. r/o posterior circulation stroke; Ve rtigo, r/o posterior circulation stroke COMPARISON: 04/24/2023 TECHNIQUE: Multi planar, multi sequence imaging was performed through the brain including: T1, T2, In version recovery, susceptibility weighted imaging and gradient echo imaging and Diffusion weighted im aging. The patient was then given intravenous contrast and multi planar, T1 fat-saturation images wer e obtained. IV Contrast: 7 cc Gadavist FINDINGS: No posterior circulation stroke . Remote injury to the left periventricular white matter posteriorly with surrounding gliosis.. The arevalo-white junctions, ventricular system, basal cisterns appear unremarkable. Diffusion-weighted imaging shows no evidence of restricted diffusion to suggest acute/subacute infarct. Intracranial art erial flow voids are maintained. Midline structures show no abnormality. Minimal scattered foci of hi gh T2 signal intensity are seen within the periventricular white matter. The susceptibility weighted images do not reveal any evidence for micro-hemorrhage. After administration of gadolinium, no abnorm al enhancement is seen. The bone marrow signal is within normal limits. Paranasal sinuses and mastoid air cells: Trace left mastoid air cell effusion. Visualized orbits: Rig ht aphakia. IMPRESSION: 1. No evidence of intracranial mass, acute/subacute infarct, or abnormal enhancement. 2. Minimal nonspecific white matter changes, likely related to small vessel ischemic disease 3. Left mastoid air cell effusion correlate for otomastoiditis.
[2023-04-25] MEDS ORDERED: FUROSEMIDE 20 MG TAB PO SCH (09:00)
[2023-04-25 09:01] LABS: HCT 32.7 % (39.6-50.0); HGB 10.3 d/dL (13.0-17.0); MCH 29.5 pg (27.0-32.0); MCHC 31.5 d/dL (32.0-37.0); MCV 93.7 FL (80.0-97.0); Mean Platelet Volume 9.8 FL (9.5-12.2); NRBC Per 100 WBC 0 X 10*3/uL (0.00-0.01); Platelet Count 149 X 10*3/uL (140-440); RBC 3.49 X 10*6/uL (4.40-5.60); RDW 15.4 % (11.5-14.5); WBC 6.68 X 10*3/uL (4.50-10.00)
[2023-04-25] MEDS: PANTOPRAZOLE 40 MG TABLET PO SCH (09:18)
[2023-04-25] MEDS: carvediloL 3.125 MG TAB PO SCH ×2 (09:18→17:05)
[2023-04-25] MEDS: ISOSORBIDE MONONITRATE ER 60 MG TAB.ER.24H PO SCH (09:18)
[2023-04-25] MEDS: TAMSULOSIN 0.4 MG CAP.ER.24H PO SCH (09:18)
[2023-04-25] MEDS: DULoxetine HCL 60 MG CAPSULE.DR PO SCH (09:19)
[2023-04-25] MEDS: ASPIRIN 81 MG PO SCH (09:19)
[2023-04-25] MEDS: CLOPIDOGREL 75 MG TAB PO SCH (09:19)
[2023-04-25] MEDS: MECLIZINE 25 MG TAB PO SCH ×3 (09:19→21:00)
[2023-04-25] MEDS: ENOXAPARIN 40 MG/0.4 ML SYRINGE SQ SCH (09:19)
[2023-04-25] MEDS: OXYMETAZOLINE 0.05% NASL SPRAY 1 SPRAY BOTTLE NASAL SCH ×2 (09:55→20:30)
[2023-04-25] MEDS: FLUTICASONE 50MCG/SPRAY NASAL 16GM EA NOSTRIL SCH (10:38)
--- NOTE | 2023-04-25 11:15 | P.PN ---
Subjective Progress Note Date: 04/25/23 I am following seeing the patient and he is sitting in a recliner chair and feels about the same. Denies of any new neurological issues. Objective - Vital Signs Vital signs: Vital Signs Temp 97.5 F L 04/25/23 07:13 Pulse 50 L 04/25/23 07:13 Resp 18 04/25/23 07:13 BP 136/69 04/25/23 07:13 Pulse Ox 96 04/25/23 07:13 FiO2 Intake & Output 04/24/23 04/25/23 04/25/23 18:59 06:59 18:59 Intake Total 500 Output Total 750 Balance -250 Intake: Oral 500 Output: Urine 750 - Exam GENERAL: The patient is lying in bed and is not in acute distress. NEUROLOGICAL: Higher mental function: The patient is awake, alert, oriented to self, place and time. Patient is following commands. No aphasia and no neglect. Cranial nerves: The pupils are round, equal and reactive to light and accommodation. Visual johnson are full to confrontation throughout. Extraocular movement is intact no nystagmus is noted. Facial sensation is normal to touch throughout. The facial strength is normal throughout. Hearing is moderately decreased bilaterally to hand rub. Tongue is midline and moved [id number] without any difficulty. No dysarthria is noted. Shoulder shrug is normal bilaterally. Motor: The strength is 5 over 5 throughout. Normal tone and bulk. Cerebellum: Normal finger to nose bilaterally. Sensation: Sensation is normal to touch throughout. Reflexes (right/left): 1+ throughout. Plantars are mute bilaterally. Some of the workup during our hospital visit consisted of: Patient orthostatic is supine 95/59 the heart rate 56, sitting is 86/52 with a heart rate is 66 and standing was 99/60 with a heart rate of 80. Orthostatics is negative. CT angiography of the head and neck is reported as mild left intervertebral artery stenosis from atherosclerosis. Mild right proximal M2 branch stenosis. MR the brain is reported as no evidence of intracranial mass, acute/subacute infarct or abnormal enhancement. Minimal nonspecific white matter changes, likely related to small vessel ischemic disease. Left mastoid air cell effusion correlate for otomastoiditis. I personally reviewed the MRI and I agree with the report. - Labs CBC & Chem 7: 04/25/23 05:20 04/24/23 06:37 Labs: Abnormal Lab Results - Last 24 Hours (Table) 04/24/23 04/24/23 04/25/23 Range/Units 06:37 06:37 05:20 RBC 3.39 L 3.49 L (4.40-5.60) X 10*6/uL Hgb 10.2 L 10.3 L (13.0-17.0) d/dL Hct 32.0 L 32.7 L (39.6-50.0) % MCHC 31.9 L 31.5 L (32.0-37.0) d/dL RDW 15.6 H 15.4 H (11.5-14.5) % Chloride 110 H (96-109) mmol/L BUN/Creatinine Ratio 24.27 H (12.00-20.00) Ratio Calcium 8.6 L (8.7-10.3) mg/dL Microbiology - Last 24 Hours (Table) 04/23/23 19:25 Blood Culture - Preliminary Blood 04/23/23 19:10 Blood Culture - Preliminary Blood 04/23/23 17:48 Urine Culture - Final Urine,Voided Assessment and Plan Assessment: This is a 77-year-old gentleman who was transferred from outside hospital for escalation of care of his dizziness and then needing neurology validation. Patient also has an acute urinary tract infection. Lightheadedness and feeling nauseous. Likely peripheral and possible left mastoiditis on imaging. MRI Brain is negative for acute or subacute stroke or intracranial mass --symptoms stable with meclizine. Mild left intervertebral artery stenosis from atherosclerosis andM ild right proximal M2 branch stenosis on CTA but not significant enough in to cause vertigo. Acute urinary tract infection Plan: He is on meclizine 25 g one tablet 3 times a day when necessary. I change it to the scheduled Recommend ENT and consideration of vestibular rehab therapy as an outpatient. We'll defer the rest of the medical management to the primary team The plan is discussed with patient. There is no further neurological work-up. Will sign off. Please reconsult if needed. Time with Patient: Less than 30
[2023-04-25 11:22] LABS: ALT 54 U/L (10-49); AST 77 U/L (14-35); Albumin 3.2 d/dL (3.8-4.9); Albumin/Globulin Ratio 1.88 Ratio (1.60-3.17); Alkaline Phosphatase 58 U/L (41-126); BUN/Creat Ratio 22.22 Ratio (12.00-20.00); Calcium 8.6 mg/dL (8.7-10.3); Carbon Dioxide 23.8 mmol/L (21.6-31.8); Chloride 111 mmol/L (96-109); Globulin 1.7 d/dL (1.6-3.3); Glucose 80 mg/dL (70-110); Magnesium 1.8 mg/dL (1.5-2.4); Potassium 4.2 mmol/L (3.5-5.5); Sodium 141 mmol/L (135-145); Total Bilirubin 0.2 mg/dL (0.3-1.2); Total Protein 4.9 d/dL (6.2-8.2)
--- NOTE | 2023-04-25 14:20 | P.PN ---
Subjective Progress Note Date: 04/25/23 (delayed charting seen at 0915) Patient is a very [id number] male with CAD status post stents on Plavix, hypertension, hyperlipidemia, BPH, vertigo with chronic tinnitus, and depression who was transferred to our facility on 04/23/23 from [facility] due to intractable dizziness. On arrival to the emergency department he underwent an extensive evaluation. Vital signs were unremarkable. Orthostatic vital signs were unremarkable. EKG showed first-degree AV block. CTA head was completed showing mild right proximal M2 branch stenosis and mild left intervertebral vertebral artery stenosis from atherosclerosis. Laboratory analysis was remarkable for hemoglobin 10.8, BUN 35 creatinine 1.29 with GFR 54. Influenza A, influenza B, RSV, and Covid PCR were all negative. Patient was admitted and consult for neurology was placed. He underwent MRI of the brain which showed no evidence of intracranial mass, subacute/acute infarct, or abnormal in half, possible left mastoid air cell effusion. Patient seen and examined at bedside. Patient seen and examined at bedside. He continues to have some dizziness but it might be slightly better than yesterday. He states he has had vertigo for several years although it 1970s but typically it has last 1-2 days and associated with sinusitis. He does report an increase in his nasal symptoms including post nasal drip. We discussed that there is no signs of acute stroke on MRI. Patient denies any new medications. Vital signs reviewed General: nontoxic, no distress, appears at stated age Cardiovascular: S1S2 reg, no murmur, positive posterior tibial pulse bilateral, Lungs: CTA bilateral, no rhonchi, no rales , no accessory muscle use Abdominal: soft, nontender to palpation, no guarding, no appreciable or ganomegaly Ext: no gross muscle atrophy, no edema b/l lower extremities, no contractures Neuro: CN II-XI grossly intact, no focal neuro deficits Psych: Alert, oriented, appropriate affect Assessment/Plan: Intractable dizziness suspect vertigo Chronic tinnitus Dehydration with prerenal azotemia Transaminitis -D/W neurologist and does not appear neurological -Outpatient ENT follow up with vestibular rehab at -Increase meclizine to 37.5 mg 3 times daily scheduled -Add 2 days worth of Afrin, resume home Flonase dosing -Patient did receive 2 doses of Rocephin. Urinalysis is negative and no need to continue. Will start Augmentin for possible sinusitis - decrease cymbalta to 60 mg daily - await PT/OT evaluation History of CAD status post stenting on Plavix Hypertension Hyperlipidemia Imaging: MRI: No evidence of intracranial mass, subacute/acute infarct Data Review: Vitals reviewed in T-max 98/24 hours, heart rate 50, respirations 18, blood pressure 136/69, O2 sat 96% on room air - Tele reviewed and no significant arrhythmias noted. Labs reveal hemoglobin 10.3, chloride 111, AST 77, ALT 54 DVT prophylaxis: Lovenox Discussed with: Patient, nursing Anticipated discharge date: Pending Clinical Course Anticipated discharge place: Pending Clinical Course This dictation was prepared using [employer] voice recognition software. Though every attempt is made to correct errors during dictation some may still exist. Objective - Vital Signs Vital signs: Vital Signs Temp 97.9 F 04/25/23 12:08 Pulse 58 L 04/25/23 12:08 Resp 18 04/25/23 12:08 BP 121/69 04/25/23 12:08 Pulse Ox 96 04/25/23 12:08 FiO2 Intake & Output 04/24/23 04/25/23 04/25/23 18:59 06:59 18:59 Intake Total 500 Output Total 750 Balance -250 Intake: Oral 500 Output: Urine 750 - Labs CBC & Chem 7: 04/25/23 05:20 04/25/23 05:20 Labs: Abnormal Lab Results - Last 24 Hours (Table) 04/25/23 04/25/23 Range/Units 05:20 05:20 RBC 3.49 L (4.40-5.60) X 10*6/uL Hgb 10.3 L (13.0-17.0) d/dL Hct 32.7 L (39.6-50.0) % MCHC 31.5 L (32.0-37.0) d/dL RDW 15.4 H (11.5-14.5) % Chloride 111 H (96-109) mmol/L BUN/Creatinine Ratio 22.22 H (12.00-20.00) Ratio Calcium 8.6 L (8.7-10.3) mg/dL Total Bilirubin 0.2 L (0.3-1.2) mg/dL AST 77 H (14-35) U/L ALT 54 H (10-49) U/L Total Protein 4.9 L (6.2-8.2) d/dL Albumin 3.2 L (3.8-4.9) d/dL Microbiology - Last 24 Hours (Table) 04/23/23 19:25 Blood Culture - Preliminary Blood 04/23/23 19:10 Blood Culture - Preliminary Blood 04/23/23 17:48 Urine Culture - Final Urine,Voided
[2023-04-25] MEDS: AMOXIC-POT CLAV 875-125MG 1 EACH TAB PO SCH ×2 (14:42→20:31)
[2023-04-25] MEDS: GABAPENTIN 300 MG CAP PO SCH (20:29)
[2023-04-25] MEDS: FINASTERIDE 5 MG TAB PO SCH (20:29)
[2023-04-25] MEDS: MELATONIN 5 MG TABLET PO SCH (20:29)
[2023-04-25] MEDS: traZODone HCL 50 MG TAB PO SCH (20:29)
[2023-04-25] MEDS: ATORVASTATIN 20 MG TAB PO SCH (20:29)
[2023-04-26] MEDS: ENOXAPARIN 40 MG/0.4 ML SYRINGE SQ SCH (08:03)
[2023-04-26] MEDS: AMOXIC-POT CLAV 875-125MG 1 EACH TAB PO SCH ×2 (08:03→20:45)
[2023-04-26] MEDS: CLOPIDOGREL 75 MG TAB PO SCH (08:03)
[2023-04-26] MEDS: ISOSORBIDE MONONITRATE ER 60 MG TAB.ER.24H PO SCH (08:03)
[2023-04-26] MEDS: ASPIRIN 81 MG PO SCH (08:03)
[2023-04-26] MEDS: TAMSULOSIN 0.4 MG CAP.ER.24H PO SCH (08:03)
[2023-04-26] MEDS: PANTOPRAZOLE 40 MG TABLET PO SCH (08:03)
[2023-04-26] MEDS: FLUTICASONE 50MCG/SPRAY NASAL 16GM EA NOSTRIL SCH (08:04)
[2023-04-26] MEDS: carvediloL 3.125 MG TAB PO SCH ×2 (08:04→16:59)
[2023-04-26] MEDS: DULoxetine HCL 60 MG CAPSULE.DR PO SCH (08:04)
[2023-04-26] MEDS: MECLIZINE 25 MG TAB PO SCH ×3 (08:04→20:47)
[2023-04-26] MEDS: OXYMETAZOLINE 0.05% NASL SPRAY 1 SPRAY BOTTLE NASAL SCH ×2 (08:04→20:45)
--- NOTE | 2023-04-26 12:47 | P.CRDCN ---
History of Present Illness History of present illness: HISTORY OF PRESENT ILLNESS: This is a 77-year-old male with a past medical history significant for coronary artery disease with previous stenting 3, hypertension, hyperlipidemia, vertigo, chronic tinnitus, and BPH. Patient follows with a health club attendant in [place]. We have been asked to see the patient in consultation for bradycardia and dizziness. Patient examined this afternoon. Patient is sitting up in the chair. Patient gives history of chronic dizziness that first started in the 1970s. He states this time the symptoms seem to last longer than normal so he went to the hospital for further evaluation. The patient currently states "I feel like my head is in a fog". Patient denies having any chest pain or pressure. He denies any shortness of breath. Patient denies having any syncopal episodes. * EKG reveals sinus mechanism with no signs of ischemia. IVCD. * Laboratory data: WBC 6.68. Hemoglobin 10.3. Platelet count 149. Sodium 141. Potassium 4.2. BUN 20. Creatinine 0.9. Troponin negative 1. * Current home cardiac medications include Lasix 20 mg daily, Plavix 75 mg daily, carvedilol 3.125 mg twice a day, Imdur 60 mg daily REVIEW OF SYSTEMS: At the time of my exam: CONSTITUTIONAL: Denies fever or chills. HEENT: Denies blurred vision, vision changes, or eye pain. Denies hemoptysis CARDIOVASCULAR: Denies chest pain. Denies orthopnea. Denies PND. Denies palpitations RESPIRATORY: Denies shortness of breath. GASTROINTESTINAL: Denies abdominal pain. Denies nausea or vomiting. HEMATOLOGIC: Denies bleeding disorders. GENITOURINARY: Denies any blood in urine. SKIN: Denies pruitis. Denies rash. PHYSICAL EXAM: VITAL SIGNS: Reviewed. GENERAL: Well-developed in no acute distress. HEENT: Head is normocephalic. Pupils are equal, round. Sclerae anicteric. Mucous membranes of the mouth are moist. Neck supple. No JVD or thyromegaly LUNGS: Respirations even and unlabored. Lungs essentially clear to auscultation bilaterally. HEART: Regular rate and rhythm. S1 and S2 heard. ABDOMEN: Soft. Nondistended. Nontender. EXTREMITIES: Normal range of motion. No clubbing or cyanosis. Peripheral pulses intact. No lower extremity edema NEUROLOGIC: Awake and alert. Oriented x 3. ASSESSMENT: Sinusitis Chronic tinnitus Chronic dizziness, since 1970s per patient Coronary artery disease with previous stenting x 3, patient states last around 2009 Bradycardia, asymptomatic Hypertension Hyperlipidemia BPH PLAN: Patients symptoms are chronic in nature and do not appear to be cardiac in etiology. He is maintaining sinus mechanism with heart rates in the 50s. He denies any episodes of syncope. Will obtain 2-D echo to assess cardiac stru cture and function. If no significant abnormalities noted, the patient may be discharged home from a cardiac standpoint. The patient has a scheduled appointment next week with his primary health club attendant. Nurse practitioner note has been reviewed by physician. Signing provider agrees with the documented findings, assessment, and plan of care. Past Medical History Past Medical History: Diabetes Mellitus, Hypertension Additional Past Medical History / Comment(s): CAD, UTI History of Any Multi-Drug Resistant Organisms: None Reported Past Surgical History: Heart Catheterization With Stent Additional Past Surgical History / Comment(s): 3 stents Date of Last Stent Placement:: 08/2011 Past Psychological History: Depression Smoking Status: Former smoker Past Alcohol Use History: Occasional Past Drug Use History: None Reported - Past Family History Mother Family Medical History: Cancer Additional Family Medical History / Comment(s): Breast CA Father Family Medical History: Myocardial Infarction ([place]) Medications and Allergies Home Medications Medication Instructions Recorded Confirmed Type Carvedilol [Coreg] 3.125 mg PO BID 03/27/16 04/23/23 History Clopidogrel [Plavix] 75 mg PO DAILY 03/27/16 04/23/23 History Furosemide [Lasix] 20 mg PO DAILY 03/27/16 04/23/23 History Atorvastatin [Lipitor] 20 mg PO HS 04/23/23 04/23/23 History DULoxetine HCL [Cymbalta] 60 mg PO BID 04/23/23 04/23/23 History Finasteride [Proscar] 5 mg PO HS 04/23/23 04/23/23 History Gabapentin 300 mg PO HS 04/23/23 04/23/23 History Isosorbide Mononitrate ER [Imdur] 60 mg PO DAILY 04/23/23 04/23/23 History Loratadine [Claritin] 10 mg PO DAILY 04/23/23 04/23/23 History Melatonin 10 mg PO HS 04/23/23 04/23/23 History Omeprazole [PriLOSEC] 20 mg PO DAILY 04/23/23 04/23/23 History Tamsulosin HCl [Flomax] 0.4 mg PO DAILY 04/23/23 04/23/23 History Vit C/E/Zn/Coppr/Lutein/Zeaxan 1 cap PO BID 04/23/23 04/23/23 History [Preservision Areds 2 Softgel] traZODone HCL [Desyrel] 50 mg PO HS 04/23/23 04/23/23 History Allergies Allergy/AdvReac Type Severity Reaction Status Date / Time cortisone Allergy Rash/Hives Verified 04/23/23 18:00 house dust mite Allergy Itching Verified 04/23/23 18:00 Physical Exam Vitals: Vital Signs Temp Pulse Pulse Resp BP BP BP 04/26/23 11:15 98.4 F 60 16 107/58 04/26/23 08:13 04/26/23 07:17 97.7 F 58 L 18 112/63 04/26/23 01:29 98.3 F 66 18 100/57 04/25/23 20:00 97.9 F 67 20 100/52 04/25/23 19:45 20 Pulse Ox FiO2 04/26/23 11:15 97 04/26/23 08:13 97 21 04/26/23 07:17 97 04/26/23 01:29 96 04/25/23 20:00 94 L 04/25/23 19:45 Intake and Output 04/25/23 04/26/23 04/26/23 22:59 06:59 14:59 Intake Total 700 Output Total 300 350 Balance -300 350 Intake: Oral 700 Output: Urine 300 350 Other: Voiding Method Urinal # Voids 1 1 Results 04/25/23 05:20 04/25/23 05:20 Current Medications Generic Name Dose Route Start Last Admin Trade Name Freq PRN Reason Stop Dose Admin Acetaminophen 650 mg 04/23/23 18:01 Acetaminophen Tab 325 Mg Tab PO Q6HR PRN Mild Pain or Fever > 100.5 Amoxicillin/Clavulanate Potassium 1 each 04/25/23 14:30 04/26/23 08:03 Amoxic-Pot Clav 875-125mg 1 Each Tab PO 1 each Q12HR YANCY Administration Protocol Aspirin 81 mg 04/24/23 17:45 04/26/23 08:03 Aspirin 81 Mg PO 81 mg DAILY YANCY Administration Atorvastatin Calcium 20 mg 04/24/23 21:00 04/25/23 20:29 Atorvastatin 20 Mg Tab PO 20 mg HS YANCY Administration Carvedilol 3.125 mg 04/24/23 17:30 04/26/23 08:04 Carvedilol 3.125 Mg Tab PO 3.125 mg AC-BID YANCY Administration Clopidogrel Bisulfate 75 mg 04/24/23 17:30 04/26/23 08:03 Clopidogrel 75 Mg Tab PO 75 mg DAILY YANCY Administration Duloxetine HCl 60 mg 04/26/23 09:00 04/26/23 08:04 Duloxetine Hcl 60 Mg Capsule.Dr PO 60 mg DAILY YANCY Administration Enoxaparin Sodium 40 mg 04/24/23 09:00 04/26/23 08:03 Enoxaparin 40 Mg/0.4 Ml Syringe SQ 40 mg DAILY YANCY Administration Finasteride 5 mg 04/24/23 21:00 04/25/23 20:29 Finasteride 5 Mg Tab PO 5 mg HS YANCY Administration Fluticasone Propionate 2 spray 04/25/23 09:30 04/26/23 08:04 Fluticasone 50mcg/[place] Nasal 16gm EA NOSTRIL 2 spray DAILY YANCY Administration Gabapentin 300 mg 04/24/23 21:00 04/25/23 20:29 Gabapentin 300 Mg Cap PO 300 mg HS YANCY Administration Isosorbide Mononitrate 60 mg 04/25/23 09:00 04/26/23 08:03 Isosorbide Mononitrate Er 60 Mg Tab.Er.24h PO 60 mg DAILY YANCY Administration Meclizine HCl 37.5 mg 04/25/23 16:00 04/26/23 08:04 Meclizine 25 Mg Tab PO 37.5 mg TID YANCY Administration Melatonin 10 mg 04/24/23 21:00 04/25/23 20:29 Melatonin 5 Mg Tablet PO 10 mg HS YANCY Administration Naloxone HCl 0.2 mg 04/23/23 18:01 Naloxone 0.4 Mg/Ml 1 Ml Vial IV Q2M PRN Opioid Reversal Oxymetazoline HCl 2 spray 04/25/23 09:30 04/26/23 08:04 Oxymetazoline 0.05% Nasl [place] 1 [place] Bottle NASAL 2 spray BID YANCY Administration Pantoprazole Sodium 40 mg 04/25/23 09:00 04/26/23 08:03 Pantoprazole 40 Mg Tablet PO 40 mg DAILY YANCY Administration Tamsulosin HCl 0.4 mg 04/25/23 09:00 04/26/23 08:03 Tamsulosin 0.4 Mg Cap.Er.24h PO 0.4 mg DAILY YANCY Administration Trazodone HCl 50 mg 04/24/23 21:00 04/25/23 20:29 Trazodone Hcl 50 Mg Tab PO 50 mg HS YANCY Administration Intake and Output 04/25/23 04/26/23 04/26/23 22:59 06:59 14:59 Intake Total 700 Output Total 300 350 Balance -300 350 Intake: Oral 700 Output: Urine 300 350 Other: Voiding Method Urinal # Voids 1 1 04/25/23 05:20 04/25/23 05:20
--- NOTE | 2023-04-26 17:51 | CA ---
Transthoracic Echo Report Name: Carlo Garrido Age: 77 Gender: M : 1945 Exam Date: 04/26/2023 12:41 Exam Location: [place] [facility] Ht (in): 67 Wt (lb): 162 Ordering Physician: Shawanda Agosto Attending/Referring Phys: [id number], [facility] Jacinda Munguia [facility] Procedure CPT: Indications: LV function Cardiac Hx: Technical Quality: Contrast 1: Total Dose (mL): Contrast 2: Total Dose (mL): MEASUREMENTS (Male / Female) Normal Values 2D ECHO LV Diastolic Diameter PLAX 4.8 cm 4.2 - 5.9 / 3.9 - 5.3 cm LV Systolic Diameter PLAX 3.4 cm IVS Diastolic Thickness 0.8 cm 0.6 - 1.0 / 0.6 - 0.9 cm LVPW Diastolic Thickness 1.0 cm 0.6 - 1.0 / 0.6 - 0.9 cm LV Relative Wall Thickness 0.4 LVOT Diameter 2.0 cm Ascending Aorta Diameter 3.0 cm M-MODE Aortic Root Diameter MM 3.5 cm LA Systolic Diameter MM 4.3 cm LA Ao Ratio MM 1.2 AV Cusp Separation MM 2.1 cm DOPPLER AV Peak Velocity 123.9 cm/s AV Peak Gradient 6.1 mmHg AV Mean Velocity 89.7 cm/s AV Mean Gradient 3.6 mmHg AV Velocity Time Integral 26.5 cm LVOT Peak Velocity 114.5 cm/s LVOT Peak Gradient 5.2 mmHg LVOT Velocity Time Integral 23.9 cm LVOT Stroke Volume 75.8 cm??? LVOT Stroke Volume Index 41.0 ml/m??? LVOT Cardiac Index 2143.3 cm???/min???m??? AV Area Cont Eq vti 2.9 cm??? AV Area Cont Eq pk 2.9 cm??? Mitral E Point Velocity 76.4 cm/s Mitral A Point Velocity 105.2 cm/s Mitral E to A Ratio 0.7 MV Deceleration Time 224.6 ms LV E' Lateral Velocity 6.4 cm/s Mitral E to LV E' Lateral Ratio 11.9 LV E' Septal Velocity 4.9 cm/s Mitral E to LV E' Septal Ratio 15.4 Right Atrial Pressure 8.0 mmHg FINDINGS Left Ventricle Normal Left ventricular size, wall thickness, systolic function with no obvious regional wall motion abnormalities. Left ventricular ejection fraction is estimated at 55-60%. Septal hypertrophy. Right Ventricle Mild right ventricular dilatation. Right Atrium Normal right atrial size. Left Atrium Left atrial size at the upper limits of normal. Mitral Valve Structurally normal mitral valve. Trace mitral regurgitation. Aortic Valve Trileaflet aortic valve. No aortic valve stenosis or regurgitation. Tricuspid Valve Structurally normal tricuspid valve. No tricuspid regurgitation. Pulmonic Valve Structurally normal pulmonic valve. No pulmonic regurgitation. Pericardium No pericardial effusion. Aorta Normal size aortic root and proximal ascending aorta. CONCLUSIONS Normal ejection fraction Asymmetrical septal hypertrophy Previewed by: Dr. Dago Hughes MD (Electronically Signed) Final Date: 26 April 2023 17:50
--- NOTE | 2023-04-26 18:31 | P.PN ---
Subjective Progress Note Date: 04/26/23 (delayed charting seen at 10am) Patient is a very -uhrp-acv male with CAD status post stents on Plavix, hypertension, hyperlipidemia, BPH, vertigo with chronic tinnitus, and depression who was transferred to our facility on 04/23/23 from [facility] due to intractable dizziness. On arrival to the emergency department he underwent an extensive evaluation. Vital signs were unremarkable. Orthostatic vital signs were unremarkable. EKG showed first-degree AV block. CTA head was completed showing mild right proximal M2 branch stenosis and mild left intervertebral vertebral artery stenosis from atherosclerosis. Laboratory analysis was remarkable for hemoglobin 10.8, BUN 35 creatinine 1.29 with GFR 54. Influenza A, influenza B, RSV, and Covid PCR were all negative. Patient was admitted and consult for neurology was placed. He underwent MRI of the brain which showed no evidence of intracranial mass, subacute/acute infarct, or abnormal in half, possible left mastoid air cell effusion. He continued to have dizziness. Patient seen and examined at bedside. The patient reports that he is having some right sided ear pain that was present yesterday but is now better today. He still reports some dizziness and states it is either minimally better unchang ed. We had a discussion whether or not he wanted to go to rehab his therapy did recommend that he had declined. He states his daughter can care for him at home she has been a printer's devil for the elderly in the past. I discussed with him that he had to decide whether or not he thought he would have a high risk of falls at home and if he did I would recommend SNF. Vital signs reviewed General: nontoxic, no distress, appears at stated age Ear exam: Right TM with loss of cone of light no erythema, no purulence behind TM, left TM again with bulging and loss of cone of light, no redness Cardiovascular: S1S2 reg, no murmur, positive posterior tibial pulse bilateral, Lungs: CTA bilateral, no rhonchi, no rales , no accessory muscle use Abdominal: soft, nontender to palpation, no guarding, no appreciable organomegaly Ext: no gross muscle atrophy, no edema b/l lower extremities, no contractures Neuro: CN II-XI grossly intact, no focal neuro deficits Psych: Alert, oriented, appropriate affect Assessment/Plan: Intractable dizziness suspect vertigo Chronic tinnitus Dehydration with prerenal azotemia Transaminitis Sinusitis Intraventricular conduction delay -Outpatient ENT follow up and possible vestibular rehab -Meclizine to 37.5 mg 3 times daily scheduled -completed afrin today, continue flonase - Augmentin for sinusitis - cymbalta to 60 mg daily - PT/OT recommends rehab - cardio consulted case discussed with HOTEL SERVICE MANAGER and can follow up wtih his zipper measurer for intraventicular conduction zander, okay for discharge if echo is normal History of CAD status post stenting on Plavix Hypertension Hyperlipidemia - Ellen Vines called me with report of normal echo. Plan was to discharge patient home, however he now states that he has no one to pick him up and no clothes to have a cab ride home, and that now he is thinking about rehab. D/C delayed until AM Imaging: None new Data Review: AM vitals are reviewed and temperature 97.7, pulse 68, respirations 18, blood pressure 112/63, O2 sat 97% on room air No new labs available for today. DVT prophylaxis: Lovenox Discussed with: Patient, nursing Anticipated discharge date: in AM Anticipated discharge place: Home vs SNF This dictation was prepared using [employer] voice recognition software. Though every attempt is made to correct errors during dictation some may still exist. Objective - Vital Signs Vital signs: Vital Signs Temp 98.4 F 04/26/23 11:15 Pulse 60 04/26/23 11:15 Resp 16 04/26/23 11:15 BP 107/58 04/26/23 11:15 Pulse Ox 97 04/26/23 11:15 FiO2 21 04/26/23 08:13 Intake & Output 04/25/23 04/26/23 04/26/23 18:59 06:59 18:59 Intake Total 700 Output Total 650 Balance 50 Intake: Oral 700 Output: Urine 650 Other: Voiding Method Urinal # Voids 3 1 - Labs CBC & Chem 7: 04/25/23 05:20 04/25/23 05:20 Labs: Microbiology - Last 24 Hours (Table) 04/23/23 19:25 Blood Culture - Preliminary Blood 04/23/23 19:10 Blood Culture - Preliminary Blood
[2023-04-26 19:59] LABS: Glucose,Whole Blood 269 mg/dL (70-110)
[2023-04-26 19:59] LABS: Glucose,Whole Blood 409 mg/dL (70-110)
[2023-04-26] MEDS: GABAPENTIN 300 MG CAP PO SCH (20:44)
[2023-04-26] MEDS: MELATONIN 5 MG TABLET PO SCH (20:44)
[2023-04-26] MEDS: traZODone HCL 50 MG TAB PO SCH (20:45)
[2023-04-26] MEDS: FINASTERIDE 5 MG TAB PO SCH (20:45)
[2023-04-26] MEDS: ATORVASTATIN 20 MG TAB PO SCH (20:45)
[2023-04-27] MEDS: ENOXAPARIN 40 MG/0.4 ML SYRINGE SQ SCH (08:27)
[2023-04-27] MEDS: PANTOPRAZOLE 40 MG TABLET PO SCH (08:28)
[2023-04-27] MEDS: OXYMETAZOLINE 0.05% NASL SPRAY 1 SPRAY BOTTLE NASAL SCH (08:28)
[2023-04-27] MEDS: ISOSORBIDE MONONITRATE ER 60 MG TAB.ER.24H PO SCH (08:28)
[2023-04-27] MEDS: TAMSULOSIN 0.4 MG CAP.ER.24H PO SCH (08:28)
[2023-04-27] MEDS: AMOXIC-POT CLAV 875-125MG 1 EACH TAB PO SCH (08:28)
[2023-04-27] MEDS: carvediloL 3.125 MG TAB PO SCH (08:28)
[2023-04-27] MEDS: DULoxetine HCL 60 MG CAPSULE.DR PO SCH (08:28)
[2023-04-27] MEDS: CLOPIDOGREL 75 MG TAB PO SCH (08:28)
[2023-04-27] MEDS: ASPIRIN 81 MG PO SCH (08:28)
[2023-04-27] MEDS: MECLIZINE 25 MG TAB PO SCH (08:28)
[2023-04-27] MEDS: FLUTICASONE 50MCG/SPRAY NASAL 16GM EA NOSTRIL SCH (08:29)
[2023-04-27 08:48] VITALS: BP 110/64; PULSE 84; RESP 16; TEMP 98.4
--- NOTE | 2023-04-27 09:57 | P.DS ---
Providers Date of admission: 04/23/23 18:01 Expected date of discharge: 04/27/23 Attending physician: Ramiro Hdez MD Consults: 04/23/23 18:01 Consult Physician Routine Consulting Provider: Evelio Rice Consult Reason/Comments: persistent dizziness, history of vertigo Do you want consulting provider notified?: Yes Primary care physician: [facility] Hospital Course: Discharge Diagnosis: Intractable dizziness due to vertigo Chronic tinnitus Dehydration with prerenal azotemia Transaminitis Sinusitis Intraventricular conduction delay History of CAD status post stenting on Plavix Hypertension Hyperlipidemia Hospital Course: Patient is a very [id number] male with CAD status post stents on Plavix, hypertension, hyperlipidemia, BPH, vertigo with chronic tinnitus, and depression who was transferred to our facility on 04/23/23 from [facility] due to intractable dizziness. On arrival to the emergency department he underwent an extensive evaluation. Vital signs were unremarkable. Orthostatic vital signs were unremarkable. EKG showed first-degree AV block. CTA head was completed showing mild right proximal M2 branch stenosis and mild left intervertebral vertebral artery stenosis from atherosclerosis. Laboratory analysis was remarkable for hemoglobin 10.8, BUN 35 creatinine 1.29 with GFR 54. Influenza A, influenza B, RSV, and Covid PCR were all negative. Patient was admitted and consult for neurology was placed. He underwent MRI of the brain which showed no evidence of intracranial mass, subacute/acute infarct, or abnormal in half, possible left mastoid air cell effusion. He continued to have dizziness. He was seen by cardiology and they felt his dizziness was unrelated to cardiac etiologies. He had an echocardiogram which showed preserved ejection fraction and no significant valvular disease. He was determined stable for discharge with outpatient follow-up Follow-up: [facility], ENT, his manager software development. Given a prescription for meclizine. He should continue with his toenails. Her surgeon given for Augmentin for possible sinusitis. Patient seen and examined at bedside. He is still having some dizziness when moving but it is better at rest. Vital signs reviewed and stable. General: nontoxic, no distress, appears at stated age Cardiovascular: S1S2 reg, no murmur, positive posterior tibial pulse bilateral, Lungs: CTA bilateral, no rhonchi, no rales , no accessory muscle use Neuro: CN II-XI grossly intact, no focal neuro deficits Psych: Alert, oriented, appropriate affect A total of 37 minutes of time were spent preparing this complex discharge summary. Patient was discharged on 04/27/23. This dictation was prepared using [employer] voice recognition software. Though every attempt is made to correct errors during dictation some may still exist. Patient Condition at Discharge: Stable Plan - Discharge Summary Discharge Rx Participant: No New Discharge Prescriptions: New Meclizine [Antivert] 25 mg PO TID PRN #30 tab PRN Reason: dizziness Aspirin 81 mg PO DAILY tab Fluticasone Nasal [place] [Flonase Nasal [place]] 2 spray EA NOSTRIL DAILY ml Amoxic-Pot Clav 875-125Mg [Augmentin 875-125] 1 each PO Q12HR #10 tab DULoxetine HCL [Cymbalta] 60 mg PO DAILY #0 cap Continue Clopidogrel [Plavix] 75 mg PO DAILY Carvedilol [Coreg] 3.125 mg PO BID Furosemide [Lasix] 20 mg PO DAILY Tamsulosin HCl [Flomax] 0.4 mg PO DAILY Omeprazole [PriLOSEC] 20 mg PO DAILY Loratadine [Claritin] 10 mg PO DAILY Isosorbide Mononitrate ER [Imdur] 60 mg PO DAILY Gabapentin 300 mg PO HS Atorvastatin [Lipitor] 20 mg PO HS traZODone HCL [Desyrel] 50 mg PO HS Vit C/E/Zn/Coppr/Lutein/Zeaxan [Preservision Areds 2 Softgel] 1 cap PO BID Melatonin 10 mg PO HS Finasteride [Proscar] 5 mg PO HS Discontinued DULoxetine HCL [Cymbalta] 60 mg PO BID Discharge Medication List Carvedilol [Coreg] 3.125 mg PO BID 03/27/16 [History] Clopidogrel [Plavix] 75 mg PO DAILY 03/27/16 [History] Furosemide [Lasix] 20 mg PO DAILY 03/27/16 [History] Atorvastatin [Lipitor] 20 mg PO HS 04/23/23 [History] Finasteride [Proscar] 5 mg PO HS 04/23/23 [History] Gabapentin 300 mg PO HS 04/23/23 [History] Isosorbide Mononitrate ER [Imdur] 60 mg PO DAILY 04/23/23 [History] Loratadine [Claritin] 10 mg PO DAILY 04/23/23 [History] Melatonin 10 mg PO HS 04/23/23 [History] Omeprazole [PriLOSEC] 20 mg PO DAILY 04/23/23 [History] Tamsulosin HCl [Flomax] 0.4 mg PO DAILY 04/23/23 [History] Vit C/E/Zn/Coppr/Lutein/Zeaxan [Preservision Areds 2 Softgel] 1 cap PO BID 04/23/23 [History] traZODone HCL [Desyrel] 50 mg PO HS 04/23/23 [History] Amoxic-Pot Clav 875-125Mg [Augmentin 875-125] 1 each PO Q12HR #10 tab 04/27/23 [Rx] Aspirin 81 mg PO DAILY tab 04/27/23 [Rx] DULoxetine HCL [Cymbalta] 60 mg PO DAILY #0 cap 04/27/23 [Rx] Fluticasone Nasal [place] [Flonase Nasal [place]] 2 spray EA NOSTRIL DAILY ml 04/27/23 [Rx] Meclizine [Antivert] 25 mg PO TID PRN #30 tab 04/27/23 [Rx] Follow up Appointment(s)/Referral(s): [facility],Clinic [Primary Care Provider] - 1-2 days Activity/Diet/Wound Care/Special Instructions: Activity: As tolerated Fall precautions Diet: Regular Special Instructions: [facility] Please keep your cardiology follow-up Discharge Disposition: HOME SELF-CARE
== END 2023-04-27 14:04 | disposition home or self-care (01) ==
LOC: EC 16:40 → INTOOBSV 18:01 → 5NMEDONC 18:01
PROVIDERS: ADMIT Internal Medicine; ATTEND Internal Medicine
DX: R42 Dizziness and giddiness (principal); N39.0 Urinary tract infection, site not specified; I77.1 Stricture of artery; J32.9 Chronic sinusitis, unspecified; H93.19 Tinnitus, unspecified ear; R00.1 Bradycardia, unspecified; E11.22 Type 2 diabetes mellitus with diabetic chronic kidney disease; I12.9 Hypertensive chronic kidney disease with stage 1 through stage 4 chronic kidney disease, or unspecified chronic kidney disease; N18.9 Chronic kidney disease, unspecified; I95.9 Hypotension, unspecified; R11.2 Nausea with vomiting, unspecified; R79.89 Other specified abnormal findings of blood chemistry; I65.02 Occlusion and stenosis of left vertebral artery; D64.9 Anemia, unspecified; R74.01 Elevation of levels of liver transaminase levels; I44.0 Atrioventricular block, first degree; I25.10 Atherosclerotic heart disease of native coronary artery without angina pectoris; F32.A Depression, unspecified; E78.5 Hyperlipidemia, unspecified; N40.0 Benign prostatic hyperplasia without lower urinary tract symptoms; Z20.822 Contact with and (suspected) exposure to COVID-19; Z87.891 Personal history of nicotine dependence; Z95.5 Presence of coronary angioplasty implant and graft; Z79.02 Long term (current) use of antithrombotics/antiplatelets; Z79.899 Other long term (current) drug therapy
CPT/HCPCS: 96372 ×4; 96365; 96366 ×2; 99285; 36415; 94760 ×2; 93005; 93306; 97530 ×2; 97162; 97166; 80053; 80048 ×2; 83605; 83735; 84484; 85025 ×2; 85027; 81001; 87040; 87086; 87636; 70496; 70498; 70553; G0378 ×5; S0138 ×3; J1650 ×4; J0696 ×2; Q9967; A9585